=== PATIENT | female | born 1990 | race Caucasian/White ===

== ENCOUNTER 2017-04-25 11:34 | Emergency (ER) | payer OTHER ==
[2017-04-25 12:01] VITALS: BP 138/78
--- NOTE | 2017-04-25 12:42 | UC ---
FLU HPI - HPI Summary HPI Summary: 26 y/o female present to the urgent care c/o CHONG, nasal congestion, productive cough, body aches and fever since last night. Pt thinks she has been exposed to the flu. Pt has not taking anything to alleviate symptoms. Pain is 6/10. Pt denies SOB, chest pain, abdominal pain, N/V/D - History of Current Complaint Chief Complaint: UCGeneralIllness Stated Complaint: FLU SX'S Time Seen by Provider: 04/25/17 12:40 Hx Obtained From: Patient Hx Last Menstrual Period: CURRENT ?: No Onset/Duration: Gradual Onset, Lasting Days - 1 day, Still Present Severity Currently: Mild Severity Initially: Moderate Pain Intensity: 6 Pain Scale Used: 0-10 Numeric Associated Signs & Symptoms: Positive: Fever, Myalgia, Cough, Nasal Congestion, Headache Related Hx: Possible Flu/Infectious Exposure - Risk Factors Influenza Risk Factors: Negative - Allergy/Home Medications Allergies/Adverse Reactions: Allergies Allergy/AdvReac Type Severity Reaction Status Date / Time No Known Allergies Allergy Verified 04/25/17 11:52 Home Medications: Home Medications Norgestimate-Ethinyl Estradiol [Ortho-Cyclen 28 Tablet] 1 tab PO DAILY 04/25/17 [History Confirmed 04/25/17] PMH/Surg Hx/FS Hx/Imm Hx Previously Healthy: Yes - Pt denies PMHX - Surgical History Surgical History: Yes Surgery Procedure, Year, and Place: TONSILLECTOMY - Family History Known Family History: Positive: None, Unknown - denies FMHX - Social History Occupation: Employed Full-time Lives: With Family Alcohol Use: Rare Substance Use Type: None Smoking Status (MU): Current Every Day Smoker Type: Cigarettes Amount Used/How Often: 1/4 PPD Length of Time of Smoking/Using Tobacco: 7 Years Have You Smoked in the Last Year: Yes - Immunization History Most Recent Influenza Vaccination: Not the 2015/2015 Season Review of Systems Constitutional: Fever, Chills, Fatigue, Other - body aches Skin: Negative Eyes: Negative ENT: Nasal Discharge, Sinus Congestion Respiratory: Cough Cardiovascular: Negative Gastrointestinal: Negative Genitourinary: Negative Motor: Negative Neurovascular: Negative Musculoskeletal: Negative Neurological: Headache Psychological: Negative Is Patient Immunocompromised?: No All Other Systems Reviewed And Are Negative: Yes Physical Exam Triage Information Reviewed: Yes Vital Signs: Initial Vital Signs Temp 99 F 04/25/17 11:54 Pulse 91 04/25/17 11:54 Resp 14 04/25/17 11:54 BP 138/78 04/25/17 11:54 Pulse Ox 100 04/25/17 11:54 - Additional Comments VITAL SIGNS: Reviewed. GENERAL: Patient is a well developed and nourished female who is sitting comfortable in the examining table. Patient is not in any acute respiratory distress. HEAD AND FACE: No signs of trauma. No ecchymosis, hematomas or skull depressions. No sinus tenderness. edematous erythematous nasal mucosa with yellowish discharge, EYES: PERRLA, EOMI x 2, No injected conjunctiva, clear watery eyes, no nystagmus. No photophobia. EARS: Hearing grossly intact. Ear canals and tympanic membranes are within normal limits. MOUTH: Positive pharynx with erythema, no exudates,no palatal petechiae. no B/L tonsillar enlargement Uvula in midline. NECK: Supple, trachea is midline, Positive anterior cervical lymphadenopathy, no JVD, no carotid bruit, no c-spine tenderness, neck with full ROM. No meningeal signs, no Kernig's or brudzinskis signs. CHEST: Symmetric, no tenderness at palpation LUNGS: Clear to auscultation bilaterally. No wheezing or crackles. CVS: Regular rate and rhythm, S1 and S2 present, no murmurs or gallops appreciated. ABDOMEN: Soft, non-tender. No signs of distention. No rebound no guarding, and no masses palpated. Bowel sounds are normal. EXTREMITIES: FROM in all major joints, no edema, no cyanosis or clubbing. NEURO: Alert and oriented x 3. No acute neurological deficits. Speech is normal and follows commands. SKIN: Dry and warm Flu Course/Dx - Course Course Of Treatment: 26 y/o female present to the urgent care c/o CHONG, nasal congestion, productive cough, body aches and fever since last night. Pt thinks she has been exposed to the flu. Pt has not taking anything to alleviate symptoms. Pain is 6/10. Pt denies SOB, chest pain, abdominal pain, N/V/D. Hx obtained. Pt with URI on examination. Influenza A&B ordered: result: negative. Pt Rx ibuprofen PO to alleviates symptoms. Advised on hand washing . Pt advised to rest, increase fluid intake, eat well and avoid strenuous exercise. If symptoms do not improve or worsen advised to return to the urgent care or f/ u with her PCP for further evaluation and treatment. Pt understood and agreed with plan of care. - Differential Dx/Diagnosis Differential Diagnosis/HQI/PQRI: Bronchitis, Influenza, Pneumonia, Upper Respiratory Infection Provider Diagnoses: 1- Upper respiratory infection Discharge - Discharge Plan Condition: Stable Disposition: HOME Prescriptions: Ibuprofen TAB* [Motrin TAB* 800 MG] 800 mg PO Q6H PRN #20 tab PRN Reason: Pain Patient Education Materials: Upper Respiratory Infection (ED) Referrals: [facility] [Outside] - 3 Days Additional Instructions: 1-Please take ibuprofen PO q6-8hrs prn as instructed after meals to alleviate pain and swelling. Increase fluid intake, eat well, rest and avoid strenuous exercise 2-If symptoms do not improve or worsen please return to the urgent care or f/u with your PCP for further evaluation and treatment.
== END 2017-04-25 13:45 | disposition home or self-care (01) ==
LOC: UCCORT 11:34
DX: J06.9 Acute upper respiratory infection, unspecified (principal); F17.210 Nicotine dependence, cigarettes, uncomplicated
CPT/HCPCS: 87502; 99211; G0463

== ENCOUNTER 2018-03-09 12:11 | Emergency (ER) | payer OTHER ==
--- NOTE | 2018-03-09 14:05 | UC ---
Eye Complaint HPI - HPI Summary HPI Summary: Noel eye redness and now some discharge over the last few days. She has no fever or cough. She denies eye pain or photophibia or contact lens use. - History of Current Complaint Stated Complaint: BILATERAL EYE CONCERN Time Seen by Provider: 03/09/18 13:54 Hx Obtained From: Patient Hx Last Menstrual Period: CURRENT ?: No Onset/Duration: Gradual Onset, Lasting Days Timing: Constant Severity Initially: Mild Severity Currently: Moderate Location of Injury: Conjunctiva Aggravating Factor(s): Nothing Alleviating Factor(s): Nothing Associated Signs And Symptoms: Positive: Drainage (Clear), Drainage (Purulent). Negative: Photophobia, Vision Impairment Bilateral, Vision Impairment Right, Vision Impairment Left, Fever, Swelling - Allergies/Home Medications Allergies/Adverse Reactions: Allergies Allergy/AdvReac Type Severity Reaction Status Date / Time No Known Allergies Allergy Verified 04/25/17 11:52 PMH/Surg Hx/FS Hx/Imm Hx Previously Healthy: No - environmental allergies. - Surgical History Surgical History: Yes Surgery Procedure, Year, and Place: TONSILLECTOMY - Family History Known Family History: Positive: None, Unknown - denies FMHX - Social History Alcohol Use: Rare Substance Use Type: None Smoking Status (MU): Current Every Day Smoker Type: Cigarettes Amount Used/How Often: 1/4 PPD Length of Time of Smoking/Using Tobacco: 7 Years Have You Smoked in the Last Year: Yes - Immunization History Most Recent Influenza Vaccination: Not the 2014/2015 Season Review of Systems All Other Systems Reviewed And Are Negative: Yes Eyes: Positive: Drainage, Eye Redness Physical Exam Triage Information Reviewed: Yes Appearance: Well-Appearing, Well-Nourished, Obese Vital Signs Reviewed: Yes Eyes: Positive: Conjunctiva Inflamed. Negative: Discharge ENT: Positive: Normal ENT inspection, TMs normal. Negative: Pharyngeal erythema , Nasal congestion Neck: Positive: Supple, Nontender, No Lymphadenopathy Respiratory: Positive: Lungs clear, Normal breath sounds, No respiratory distress, No accessory muscle use. Negative: Respiratory distress Cardiovascular: Positive: Pulses Normal, Brisk Capillary Refill Abdomen Description: Positive: No Organomegaly. Negative: Distended, Guarding Musculoskeletal: Positive: Strength Intact, ROM Intact, No Edema Neurological: Positive: Alert, Muscle Tone Normal. Negative: Fatigued Psychological: Positive: Age Appropriate Behavior Skin: Negative: Rashes Eye Complaint Course/Dx - Differential Dx/Diagnosis Provider Diagnosis: Conjunctivitis Discharge - Sign-Out/Discharge Documenting (check all that apply): Patient Departure All imaging exams completed and their final reports reviewed: No Studies - Discharge Plan Condition: Good Disposition: HOME Prescriptions: Ciprofloxacin 0.3% OPTH.PAL* [Cipro 0.3% Opth*] 2 drop BOTH EYES Q4H #1 btl Patient Education Materials: Conjunctivitis (ED) Referrals: No Primary Care Phys,NOPCP [Primary Care Provider] - Additional Instructions: Return here for any worsening. - Billing Disposition and Condition Condition: GOOD Disposition: Home
[2018-03-09 14:12] VITALS: BP 125/79
== END 2018-03-09 14:12 | disposition home or self-care (01) ==
LOC: UCCORT 12:11
DX: H10.9 Unspecified conjunctivitis (principal); F17.210 Nicotine dependence, cigarettes, uncomplicated
CPT/HCPCS: 99212; G0463